=== PATIENT | male | born 1930 | race African-American/Black ===

== ENCOUNTER 2017-05-15 08:47 | Inpatient (IN) | payer OTHER ==
--- NOTE | 2017-05-15 09:28 | PDOC ---
History of Present Illness - General Chief Complaint: Weakness Stated Complaint: FEVER/TREMORS (RECENTLY TRAVELED) Time Seen by Provider: 05/15/17 09:23 History Source: Patient, Family ( and son) Exam Limitations: No Limitations - History of Present Illness Initial Comments: 05/15/17 09:28 Patient is an 87 year old male with history of HTN and travel to [facility] sent from PCP d/t a positive test for malaria. Patient c/o fever and chills 3 days ago with 1x non bloody, non bilious vomiting and progressively worsening weakness and tiredness. Endorses mild cough, loss of appetite, tiredness, weakness and b/l lateral abdomen/flank pain. Denies recent fever, nausea, vomiting. Patient endorses taking malaria prophylaxis/treatment prior to trip. PCP: Dr. Hernandez ([phone]) According to Dr. 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 Patient was prescribed potassium supplements and was instructed to present to the ED. Past History - Past Medical History Allergies/Adverse Reactions: Allergies Allergy/AdvReac Type Severity Reaction Status Date / Time hydromorphone HCl AdvReac Severe Difficulty Verified 05/15/17 08:49 [From Dilaudid] Breathing Home Medications: Ambulatory Orders Hydrochlorothiazide [Hctz -] 25 mg PO DAILY 10/18/15 Anemia: No Asthma: No Cancer: No Cardiac Disorders: No CVA: No COPD: No CHF: No Dementia: No Diabetes: No GI Disorders: No Disorders: No HTN: Yes (MILD HAS USED PROPANOLOL IN PAST NOT IN MONTHS) Hypercholesterolemia: No Liver Disease: No Seizures: No Thyroid Disease: No - Surgical History Abdominal Surgery: No Appendectomy: No Cardiac Surgery: No Cholecystectomy: No Lung Surgery: No Neurologic Surgery: No Orthopedic Surgery: No - Suicide/Smoking/Psychosocial Hx Smoking History: Never smoked Have you smoked in the past 12 months: No Information on smoking cessation initiated: No Hx Alcohol Use: No Drug/Substance Use Hx: No Substance Use Type: None Hx Substance Use Treatment: No Review of Systems - Review of Systems Able to Perform ROS?: Yes Comments:: 05/15/17 10:48 GEN: Endorses fever, chills, general tiredness and malaise and decreased appetite HEENTM: Denies sore throat, Changes in vision, Changes in hearing Respiratory: Endorses Mild Cough; Denies Shortness of Breath Cardiac: Denies Chest Pain, Syncope ABD/GI: Endorses b/l lateral Abdominal/flank Pain, 1x vomiting; Denies Nausea, Diarrhea, Constipation, changes in BM : Denies Dysuria, Burning on urination Musculoskeletal: Denies muscle or joint pain Integumentary: Denies diaphoresis, rashes, bruises Neurological: Endorses weakness; Denies ROCHA, dizziness All Other Systems Reviewed and Negative Is the patient limited Korean proficient: No *Physical Exam - Vital Signs Last Vital Signs Temp Pulse Resp BP Pulse Ox 98.9 F 71 18 120/71 99 05/15/17 08:49 05/15/17 08:49 05/15/17 08:49 05/15/17 08:49 05/15/17 08:49 - Physical Exam Comments: GENERAL: AAOx3, nourished and generally well appearing, NAD HEAD: NCAT EYES: PERRLA, EOMI, mildly icteric sclera b/l, conjunctiva clear, mild b/l purulent discharge ENT: Auricles normal inspection, hearing grossly normal, nares patent, no nasal discharge, no congestion, oropharynx clear without exudates, dry mucosal membranes NECK: supple, normal ROM, no LAD, no JVD, no masses RESP: speaking in full sentences, lungs CTAB, symmetrical chest expansion, no respiratory distress HEART: RRR, normal S1-S2, no MRG, peripheral pulses normal and equal bilaterally ABDOMEN: soft, NTND, nlBSx4, no guarding, no rebound, no masses MUSCULOSKELETAL: no CVA Tenderness EXTREMITIES: normal inspection, moving all extremities, full ROM, strength 5/5, sensation grossly intact NEUROLOGICAL: CN II-XII grossly intact, normal speech, gait unevaluated, no focal sensorimotor deficits SKIN: warm, dry, normal turgor, no rashes or lesions noted. ED Treatment Course - LABORATORY CBC & Chemistry Diagram: 05/16/17 08:00 05/15/17 10:00 Medical Decision Making - Medical Decision Making 05/15/17 10:54 87 year old male with recent travel to [place] sent by PCP with positive test for Malaria. History of fever and vomiting x1 3 days ago, c/o anarexia, tierdness and weakness. Ddx includes but is not limited to Malaria CBC/CMP Blood parasites evaluation to confirm malaria Call PCP Call CDC Consult ID 05/15/17 10:57 CBC WBC 4.1 K/mm3 (4.0-10.0) D 05/15/17 10:00 RBC 4.33 M/mm3 (4.00-5.60) D 05/15/17 10:00 Hgb 11.9 GM/dL (11.7-16.9) D 05/15/17 10:00 Hct 36.7 % (35.4-49) D 05/15/17 10:00 MCV 84.7 fl (80-96) 05/15/17 10:00 MCH 27.4 pg (25.7-33.7) 05/15/17 10:00 MCHC 32.4 g/dl (32.0-35.9) 05/15/17 10:00 RDW 14.9 % (11.9-15.9) 05/15/17 10:00 Plt Count 68 K/MM3 (134-434) L D 05/15/17 10:00 MPV 8.9 fl (7.5-11.1) D 05/15/17 10:00 Total Counted 100 05/15/17 10:00 Neutrophils % No Result Required. 05/15/17 10:00 Neutrophils % (Manual) 31 % (42.8-82.8) L 05/15/17 10:00 Lymphocytes % No Result Required. 05/15/17 10:00 Lymphocytes % (Manual) 49 % (8-40) H 05/15/17 10:00 Monocytes % (Manual) 18 % (3.8-10.2) H* 05/15/17 10:00 Eosinophils % (Manual) 1 % (0-4.5) 05/15/17 10:00 Platelet Estimate Decreased (NORMAL) 05/15/17 10:00 Decreased platelets with increased monocytes and lymphocytes Thrombocytopenia improved from value reported by PCP 05/15/17 11:[address] Hernandez, requested callback 05/15/17 11:[address] Hernandez, Patient tested positive for P. falciparum malaria at [facility] He sent them to ED d/t k=2.9 and Plt=39, elevated LFT and for treatment Notified department of health Consulted Dr. Osman with ID who wants patient admitted for observation due to patient's age and the prevelance of resistant malaria in the area where patient traveled. Additional recommendations: - Provide hydration - Follow labs and sugars - Obtain percentage of parasites in blood - Treat with Malarone 250/100 (atovaquone/proguanil) for 7 days Spoke with Zainaby who agreed with admission. 05/15/17 13:31 Blood parasites returned negative Repeat temperature 100.1 per rectum ordered complete vitals Non concerning for sepsis at this time 05/15/17 14:18 Tylenol for ROCHA after review with attending Responded to multiple inquires by nursing to have patient moved to isolation. Informed them this was not necessary d/t transmission by mosquito vector. Referred them to ID for confirmation. *DC/Admit/Observation/Transfer Diagnosis at time of Disposition: Malaria, Thrombocytopenia - Discharge Dispostion Admit: Yes
[2017-05-15 10:18] LABS: MCH 27.4 pg (25.7-33.7); MCHC 32.4 g/dl (32.0-35.9); MEAN CELL VOLUME 84.7 fl (80-96); MEAN PLT VOLUME 8.9 fl (7.5-11.1); PLATELET COUNT 68 K/MM3 (134-434); RDW 14.9 % (11.9-15.9); WHITE BLOOD COUNT 4.1 K/mm3 (4.0-10.0)
--- NOTE | 2017-05-15 10:31 | PDOC ---
Attending Attestation - Resident Resident Name: Cornelio Neal - ED Attending Attestation I have performed the following: I have examined & evaluated the patient, The case was reviewed & discussed with the resident, I agree w/resident's findings & plan, Exceptions are as noted - HPI HPI: 05/15/17 09:59 87yo M hx sent in by PMD due to testing positive for malaria. Reports fever 3 days ago and chills, he was in [place] 2 weeks ago. Also endorsed 1 episode of NBNB emesis. +cough, decreased appetite. Reports generalized weakness as well. Did not take tempt at home. Denies headache, cp, sob, abd pain, LE edema, dysuria - Physicial Exam PE: 05/15/17 14:41 GENERAL: Awake, alert, and fully oriented, in no acute distress HEAD: No signs of trauma EYES: PERRLA, EOMI, sclera anicteric, conjunctiva clear ENT: Auricles normal inspection, hearing grossly normal, nares patent, oropharynx clear without exudates. Moist mucosa NECK: Normal ROM, supple, no lymphadenopathy, JVD, or masses LUNGS: Breath sounds equal, clear to auscultation bilaterally. No wheezes, and no crackles HEART: Regular rate and rhythm, normal S1 and S2, no murmurs, rubs or gallops ABDOMEN: Soft, nontender, normoactive bowel sounds. No guarding, no rebound. No masses EXTREMITIES: Normal range of motion, no edema. No clubbing or cyanosis. No cords, erythema, or tenderness NEUROLOGICAL: Normal speech, cranial nerves intact, negative pronator drift, 5/ 5 strength in all 4 extremities, normal sensation to light touch in all 4 extremities, normal cerebellar exam, normal gait, normal reflexes and tone SKIN: Warm, Dry, normal turgor, no rashes or lesions noted. - Medical Decision Making 05/15/17 14:42 87-year-old male presents with reported +p.falciparum testing as outpatient a/w fevers, chills, vomiting. Recent travel to [place]. Vitals and exam wnl. Per Dr. Queen, he recommends admission until we know the percentage of parasitemia. plan: -rpt smear -labs -hydration -f/u ID recs -admit
[2017-05-15 10:43] LABS: PLATELET ESTIMATE DECREASED (NORMAL); TOTAL CELLS COUNTED 100
[2017-05-15 10:53] LABS: ALBUMIN 2.7 g/dl (3.4-5.0); ANION GAP 4 (8-16); CALCIUM 8.4 mg/dL (8.5-10.1); CO2 35 mmol/L (21-32); GLUCOSE,RANDOM 93 mg/dL (74-106)
[2017-05-15 10:56] LABS: BILIRUBIN,TOTAL 2.1 mg/dL (0.2-1.0); CREATININE 0.8 mg/dL (0.7-1.3); SGPT/ALT 23 U/L (12-78); TOT PROT 6.5 g/dl (6.4-8.2)
[2017-05-15 10:57] LABS: ALK PHOS 61 U/L (45-117); SGOT/AST 38 U/L (15-37)
[2017-05-15] MEDS ORDERED: SODIUM CHLORIDE 1,000 ML IV SCH (13:45)
--- NOTE | 2017-05-15 14:02 | CON.ID ---
Consult Consult Specialty:: infectious diseases Reason for Consultation:: poisitive for malaria - History of Present Illness Chief Complaint: fever and chills History of Present Illness: 87 year old male sent over by his primary due to positive blood test for malaria. returned home from [place] two weeks ago, three days ago he started having fever , chills, headache, nausea. Blood work, done which found malaria. Patient was in [place] for 6 months, he was pre treated with chloroquine for threes weeks. He was staying in [place] area of [facility]. currently patient does not complain anything says he had high fever,does not know how high - History Source History Provided By: Patient Limitations to Obtaining History: Poor Historian - Alcohol/Substance Use Hx Alcohol Use: No - Smoking History Smoking history: Never smoked Have you smoked in the past 12 months: No Home Medications - Allergies Allergies/Adverse Reactions: Allergies Allergy/AdvReac Type Severity Reaction Status Date / Time hydromorphone HCl AdvReac Severe Difficulty Verified 05/15/17 08:49 [From Dilaudid] Breathing - Home Medications Home Medications: Ambulatory Orders Hydrochlorothiazide [Hctz -] 25 mg PO DAILY 10/18/15 Review of Systems - Review of Systems Constitutional: reports: Fever Eyes: reports: No Symptoms HENT: reports: No Symptoms Neck: reports: No Symptoms Cardiovascular: reports: No Symptoms Respiratory: reports: No Symptoms Gastrointestinal: reports: No Symptoms Genitourinary: reports: No Symptoms Musculoskeletal: reports: No Symptoms Integumentary: reports: No Symptoms Endocrine: reports: No Symptoms Hematology/Lymphatic: reports: No Symptoms Psychiatric: reports: No Symptoms Physical Exam Vital Signs: Vital Signs Temperature 101 F H 05/15/17 13:35 Pulse Rate 63 05/15/17 13:35 Respiratory Rate 20 05/15/17 13:35 Blood Pressure 124/73 05/15/17 13:35 O2 Sat by Pulse Oximetry (%) 99 05/15/17 13:35 Constitutional: Yes: No Distress, Calm Eyes: Yes: Conjunctiva Clear HENT: Yes: Atraumatic, Normocephalic Neck: Yes: Supple, Trachea Midline Cardiovascular: Yes: Regular Rate and Rhythm Respiratory: Yes: Regular, CTA Bilaterally Gastrointestinal: Yes: Normal Bowel Sounds, Soft Musculoskeletal: Yes: WNL Extremities: Yes: WNL Integumentary: Yes: WNL Neurological: Yes: Alert, Oriented Psychiatric: Yes: Alert, Oriented Imaging - Results Chest X-ray: Report Reviewed, Image Reviewed Assessment/Plan 87 year old male who was sent over by primary for malaria treatment. Problem List - Problem (1) Malaria Code(s): B54 - UNSPECIFIED MALARIA (2) Thrombocytopenia Code(s): D69.6 - THROMBOCYTOPENIA, UNSPECIFIED increased bili 4 fever please resend thick and thin smear for malaria percentage to be seen plan lymes babesia erlichia close watch on patient if high fevers or ams icu start patient on malronone 1 tab daily trend blood work and sugars rest as per primary
[2017-05-15] MEDS ORDERED: ACETAMINOPHEN 325 MG TABLET (FP) PO ONE (14:20)
[2017-05-15] MEDS ORDERED: ACETAMINOPHEN 325 MG TABLET (FP) ONE (14:21)
--- NOTE | 2017-05-15 14:26 | HP ---
<Deisy Henderson - Last Filed: 05/15/17 19:05> CHIEF COMPLAINT: fever PCP: HISTORY OF PRESENT ILLNESS: 87 year old male sent over by his primary due to positive blood test for malaria. PAtient just returned home from [place] two weeks ago, three days ago he started having fever, chills, headache, nausea. He then went to his primary who sent him for blood work, which found malaria. Patient was in [place] for 6 months, he was pre treated with chloroquine for threes weeks. He was [place] area of [place]. Recent Travel:[place] PAST MEDICAL HISTORY: htn PAST SURGICAL HISTORY: Social History: Smoking:no Alcohol:no Drugs: no Family History: Allergies hydromorphone HCl [From Dilaudid] Adverse Reaction (Severe, Verified 05/15/17 08 :49) Difficulty Breathing PT'S DAUGHTER REPORTS AFTER A PRIOR SURGERY PT HAD DIFFICULTY BREATHING AFTER RECEIVING DILAUDID AND HAD TO HAVE NARCAN DR. FINE MADE AWARE AT 1051 HOME MEDICATIONS: Home Medications Medication Instructions Recorded Hydrochlorothiazide [Hctz -] 25 mg PO DAILY 10/18/15 REVIEW OF SYSTEMS CONSTITUTIONAL: Positive: fever, chills, weakness Absent: malaise, loss of appetite, weight change HEENT: Absent: rhinorrhea, nasal congestion, throat pain, throat swelling, difficulty swallowing, mouth swelling, ear pain, eye pain, visual changes CARDIOVASCULAR: Absent: chest pain, syncope, palpitations, irregular heart rate, lightheadedness , peripheral edema RESPIRATORY: Absent: cough, shortness of breath, dyspnea with exertion, orthopnea, wheezing, stridor, hemoptysis GASTROINTESTINAL: Absent: abdominal pain, abdominal distension, nausea, vomiting, diarrhea, constipation, melena, hematochezia GENITOURINARY: Absent: dysuria, frequency, urgency, hesitancy, hematuria, flank pain, genital pain MUSCULOSKELETAL: Absent: myalgia, arthralgia, joint swelling, back pain, neck pain SKIN: Absent: rash, itching, pallor HEMATOLOGIC/IMMUNOLOGIC: Absent: easy bleeding, easy bruising, lymphadenopathy, frequent infections ENDOCRINE: Absent: unexplained weight gain, unexplained weight loss, heat intolerance, cold intolerance NEUROLOGIC: Absent: headache, focal weakness or paresthesias, dizziness, unsteady gait, seizure, mental status changes, bladder or bowel incontinence PSYCHIATRIC: Absent: anxiety, depression, suicidal or homicidal ideation, hallucinations. PHYSICAL EXAMINATION Vital Signs - 24 hr 05/15/17 05/15/17 13:27 13:35 Temperature 99.4 F 101 F H Pulse Rate [ 63 Radial] Respiratory 20 Rate Blood Pressure 124/73 [Left Arm] O2 Sat by Pulse 99 Oximetry (%) GENERAL: Awake, alert, and fully oriented, in no acute distress. HEAD: Normal with no signs of trauma. EYES: Pupils equal, round and reactive to light, extraocular movements intact, sclera anicteric, conjunctiva clear. No lid lag. EARS, NOSE, THROAT: Ears normal, nares patent, oropharynx clear without exudates. Moist mucous membranes. NECK: Normal range of motion, supple without lymphadenopathy, JVD, or masses. LUNGS: Breath sounds equal, clear to auscultation bilaterally. No wheezes, and RLL mils crackles. No accessory muscle use. HEART: Regular rate and rhythm, normal S1 and S2 without murmur, rub or gallop. ABDOMEN: Soft, nontender, not distended, normoactive bowel sounds, no guarding, no rebound, no masses. No hepatomegaly or splenomegaly. MUSCULOSKELETAL: Normal range of motion at all joints. No bony deformities or tenderness. No CVA tenderness. UPPER EXTREMITIES: 2+ pulses, warm, well-perfused. No cyanosis. No clubbing. No peripheral edema. LOWER EXTREMITIES: 2+ pulses, warm, well-perfused. No calf tenderness. No peripheral edema. NEUROLOGICAL: Cranial nerves II-XII intact. Normal speech. Normal gait. PSYCHIATRIC: Cooperative. Good eye contact. Appropriate mood and affect. SKIN: Warm, dry, normal turgor, no rashes or lesions noted, normal capillary refill. ASSESSMENT/PLAN: This is a 87 year old male who was sent over by [facility] for malaria treatment. #Fever, chills, recent travel secondary to malaria; -rule out other etiology -Ehrlichia, babesia, lyme -malaria smear pcr -isolation precautions -cbc, cmp -trend bili -monitor glucose -if fever or altered mental status transfer to ICU as per ID case discussed with attending and ID full h and p to follow Problem List - Problem (1) Malaria Code(s): B54 - UNSPECIFIED MALARIA (2) Thrombocytopenia Code(s): D69.6 - THROMBOCYTOPENIA, UNSPECIFIED Visit type - Emergency Visit Emergency Visit: Yes ED Registration Date: 05/15/17 Care time: The patient presented to the Emergency Department on the above date and was hospitalized for further evaluation of their emergent condition. - New Patient This patient is new to me today: Yes Date on this admission: 05/15/17 - Critical Care Critical Care patient: No <Prieto Morgan - Last Filed: 05/15/17 21:05> WILL START THE PATIENT ON Malarone 750mg po daily, discussed with will stop Hctz for now, will start on IVF 1/2ns At 75cc/hr , and Norvasc for HTN
--- NOTE | 2017-05-15 20:07 | PN ---
Teaching Attending Note Name of Resident: Deisy Henderson ATTENDING PHYSICIAN STATEMENT I saw and evaluated the patient. I reviewed the resident's note and discussed the case with the resident. I agree with the resident's findings and plan as documented. SUBJECTIVE: Patient is a 87yo male presented for having Fever at home with recent Dx of Malaria by his PMD . received one dose antimalarial medication but patient does not know the name of it. Came back from [place] 14 days ago and stayed there for 6 months as per patient. OBJECTIVE: Vital Signs Temperature 98.7 F 05/15/17 18:55 Pulse Rate 106 H 05/15/17 18:55 Respiratory Rate 18 05/15/17 18:55 Blood Pressure 162/64 05/15/17 18:55 O2 Sat by Pulse Oximetry (%) 99 05/15/17 16:02 CBCD WBC 4.1 K/mm3 (4.0-10.0) D 05/15/17 10:00 RBC 4.33 M/mm3 (4.00-5.60) D 05/15/17 10:00 Hgb 11.9 GM/dL (11.7-16.9) D 05/15/17 10:00 Hct 36.7 % (35.4-49) D 05/15/17 10:00 MCV 84.7 fl (80-96) 05/15/17 10:00 MCHC 32.4 g/dl (32.0-35.9) 05/15/17 10:00 RDW 14.9 % (11.9-15.9) 05/15/17 10:00 Plt Count 68 K/MM3 (134-434) L D 05/15/17 10:00 MPV 8.9 fl (7.5-11.1) D 05/15/17 10:00 CMP Sodium 140 mmol/L (136-145) 05/15/17 10:00 Potassium 3.9 mmol/L (3.5-5.1) 05/15/17 10:00 Chloride 101 mmol/L (98-107) 05/15/17 10:00 Carbon Dioxide 35 mmol/L (21-32) H D 05/15/17 10:00 Anion Gap 4 (8-16) L 05/15/17 10:00 BUN 17 mg/dL (7-18) D 05/15/17 10:00 Creatinine 0.8 mg/dL (0.7-1.3) 05/15/17 10:00 Creat Clearance w eGFR > 60 (>60) 05/15/17 10:00 Random Glucose 93 mg/dL (74-106) 05/15/17 10:00 Calcium 8.4 mg/dL (8.5-10.1) L 05/15/17 10:00 Total Bilirubin 2.1 mg/dL (0.2-1.0) H D 05/15/17 10:00 AST 38 U/L (15-37) H 05/15/17 10:00 ALT 23 U/L (12-78) D 05/15/17 10:00 Alkaline Phosphatase 61 U/L (45-117) D 05/15/17 10:00 Total Protein 6.5 g/dl (6.4-8.2) D 05/15/17 10:00 Albumin 2.7 g/dl (3.4-5.0) L 05/15/17 10:00 Current Medications Generic Name Dose Route Start Last Admin Trade Name Freq PRN Reason Stop Dose Admin Hydrochlorothiazide 25 mg 05/16/17 10:00 Hctz - PO DAILY [facility] Sodium Chloride 1,000 mls @ 150 mls/hr 05/15/17 13:45 05/15/17 14:00 Normal Saline - IV 150 mls/hr ASDIR TANA Administration Non-Formulary Medication 1 each 05/16/17 10:00 Patient's Own Med PO 05/23/17 09:59 DAILY [facility] Home Medications Medication Instructions Recorded Hydrochlorothiazide [Hctz -] 25 mg PO DAILY 10/18/15 PE: as per resident's note No icturus, no jaundice. ASSESSMENT AND PLAN: This is a 87 year old male who recently came back visiting [facility] and was given prophylactic meds for Malaria by his PMD , as per patient he has been back for 14 days now, has been having Fever. W/u was done by ,as per patient the w/u was positive for Malaria. # Diagnosed Malaria as an outpatient ,coming in with Fever, chills, will continue further w/u Ehrlichia, babesia, lyme, will repeat the malaria smear pcr -isolation precautions, cbc, cmp, elevated bili will repeat in am, if patient spikes further , fever or has change of mental status Tx the patient to ICU as per ID will start the patient on Malarone 750mg as per #Hx of HTN will hold Hctz for now, will start the patient on Norvasc 5mg if needed increase the dose. DVT px: SCD
[2017-05-15] MEDS ORDERED: PROGUANIL PO SCH (20:55)
[2017-05-15] MEDS ORDERED: ATOVAQUONE PO SCH (20:55)
[2017-05-15] MEDS: SODIUM CHLORIDE 0.45% 1,000 ML IV SCH (21:33)
[2017-05-15] MEDS: amLODIPine BESYLATE 5 MG TABLET (FP) PO SCH (21:35)
[2017-05-15 22:47] VITALS: BMI 28.5
[2017-05-16 08:43] LABS: MCH 27.4 pg (25.7-33.7); MCHC 32.3 g/dl (32.0-35.9); MEAN CELL VOLUME 84.9 fl (80-96); MEAN PLT VOLUME 7.7 fl (7.5-11.1); PLATELET COUNT 81 K/MM3 (134-434); RDW 15.1 % (11.9-15.9); WHITE BLOOD COUNT 4.1 K/mm3 (4.0-10.0)
[2017-05-16 09:14] LABS: ALBUMIN 2.4 g/dl (3.4-5.0); ANION GAP 7 (8-16); BILIRUBIN,TOTAL 1.4 mg/dL (0.2-1.0); CALCIUM 7.8 mg/dL (8.5-10.1); CO2 33 mmol/L (21-32); CREATININE 0.5 mg/dL (0.7-1.3); GLUCOSE,RANDOM 81 mg/dL (74-106); MAGNESIUM 2.1 mg/dL (1.8-2.4); PHOSPHOROUS 2.5 mg/dL (2.5-4.9); SGOT/AST 21 U/L (15-37); SGPT/ALT 20 U/L (12-78); TOT PROT 5.6 g/dl (6.4-8.2)
[2017-05-16 09:15] LABS: ALK PHOS 52 U/L (45-117)
[2017-05-16] MEDS ORDERED: HYDROCHLOROTHIAZIDE 25 MG TABLET (FP) PO SCH ×2 (10:00)
[2017-05-16] MEDS: amLODIPine BESYLATE 5 MG TABLET (FP) PO SCH (10:00)
[2017-05-16] MEDS: SODIUM CHLORIDE 0.45% 1,000 ML IV SCH (10:00)
[2017-05-16] MEDS ORDERED: PT OWN MED DRAWER 7, Y5N ONE (10:29)
[2017-05-16 11:40] LABS: BASOPHIL (MANUAL) 1 % (0-2.0); NUCLEATED RED BLOOD CELL 2 % (0-0); PLATELET COMMENT2 NO CLOTTING DETECTED; PLATELET COMMENT3 FEW LARGE PLTS; PLATELET ESTIMATE DECREASED (NORMAL); TOTAL CELLS COUNTED 100
[2017-05-16 11:41] LABS: REACTIVE LYMPHOCYTES 2 % (0-80)
[2017-05-16] MEDS ORDERED: POTASSIUM CHLORIDE ORAL LIQUID 20 MEQ/15 ML PO ONE ×2 (12:00→16:00)
--- NOTE | 2017-05-16 12:53 | PN ---
Progress Note, Physician Chief Complaint: I.D. progress note History of Present Illness: Pt seen and examined. Chart and labs reviewed. Pt states he feels much better. No fever, chills, nausea/vomiting or headache. - Current Medication List Current Medications: Active Medications Amlodipine Besylate (Norvasc -) 5 mg PO DAILY [facility] Last Admin: 05/16/17 10:00 Dose: 5 mg Sodium Chloride (1/2 Normal Saline) 1,000 mls @ 75 mls/hr IV ASDIR TANA Stop: 05/17/17 10:34 Last Admin: 05/16/17 10:00 Dose: 75 mls/hr Nf: Malarone= Atovaquone/Proguanil 250mg/100 Mg. 3 each PO DAILY [facility] Stop: 05/22/17 18:59 Last Admin: 05/16/17 10:00 Dose: 3 each Potassium Chloride (Potassium Chloride Oral Liquid) 40 meq PO ONCE ONE Stop: 05/16/17 16:01 - Objective Vital Signs: Vital Signs Temperature 98.2 F 05/16/17 09:22 Pulse Rate 65 05/16/17 09:22 Respiratory Rate 18 05/16/17 09:22 Blood Pressure 145/75 05/16/17 09:22 O2 Sat by Pulse Oximetry (%) 98 05/16/17 10:03 Constitutional: Yes: No Distress, Calm HENT: Yes: WNL Neck: Yes: Supple Cardiovascular: Yes: Regular Rate and Rhythm Respiratory: Yes: CTA Bilaterally. No: WNL, Regular, Accessory Muscle Use, Bradypnea, Shawn-Hansen, Cough, Diminished, Dullness, Hyperresonant, Intubated , Kussmaul, Mechanically Ventilated, On BiPap, On Nasal O2, On Venti-Mask, Orthopnea, Poor Air Entry, Rales, Rhonchi, SOB, SOB on Exertion, Stridor, Tachypnea, Wheezes, Other Gastrointestinal: Yes: Normal Bowel Sounds, Soft. No: WNL, Abdomen, Obese, Ascites, Distention, Hematemesis, Hemorrhoids, Hepatomegaly, Hernia, Hyperactive Bowel Sounds, Hypoactive Bowel Sounds, Melena, Palpable Mass, Pulsatile Mass, Rectal Bleeding, Splenomegaly, Tenderness, Tenderness, Epigastrium, Tenderness, Rebound, Vomiting, Other Genitourinary: Yes: WNL. No: Anuria, Bladder Distention, CVA Tenderness - Left , CVA Tenderness - Right, Bautista Present, Hematuria, Incontinence, Menses Present , Oliguria, Polyuria, , Scrotal Edema, Urethral Discharge, Vaginal Bleeding, Vaginal Discharge, Other Breast(s): Yes: WNL. No: Left, Right, Breast Implants, Dimpling, Discharge from Nipple, Gynecomastia, Mass, Nipple Inversion, Skin Changes, Other Musculoskeletal: Yes: WNL. No: Back Pain, Joint Stiffness, Joint Swelling, Muscle Pain, Muscle Weakness, Other Extremities: No: WNL, Amputation, Calf Tenderness, Cold, Cool, Cyanosis, Deformity, Delayed Capillary Refill, Erythema, External Rotation, Internal Rotation, Pallor, Shortened, Other Integumentary: No: WNL, Body Piercing, Bruising, Erythema, Incision, Jaundice, Laceration, Petechiae, Pressure Ulcer, Rash, Skin Tear, Tattoos, Tenting, Onychomycosis, Venous Stasis Changes, Other Neurological: Yes: Alert, Oriented Psychiatric: Yes: Alert, Oriented Labs: CBC, BMP 05/16/17 08:00 05/16/17 08:00 Laboratory Tests 05/15/17 05/15/17 05/16/17 10:00 10:00 08:00 WBC 4.1 D 4.1 RBC 4.33 D 3.73 L Hgb 11.9 D 10.2 L D Hct 36.7 D 31.6 L MCV 84.7 84.9 MCH 27.4 27.4 MCHC 32.4 32.3 RDW 14.9 15.1 Plt Count 68 L D 81 L MPV 8.9 D 7.7 D Total Counted 100 100 Neutrophils % No Result Required. [employer] Director Neutrophils % (Manual) 31 L 42 L D Band Neuts % (Manual) 2 Lymphocytes % No Result Required. [employer] Director Lymphocytes % (Manual) 49 H 39 D Monocytes % [employer] Director Monocytes % (Manual) 18 H* 13 H Eosinophils % [employer] Director Eosinophils % (Manual) 1 1 Basophils % [employer] Director Basophils % (Manual) 1 Nucleated RBC % 2 H Platelet Estimate Decreased Decreased Platelet Comment No clotting detected Sodium 140 Potassium 3.9 Chloride 101 Carbon Dioxide 35 H D Anion Gap 4 L BUN 17 D Creatinine 0.8 Creat Clearance w eGFR > 60 Random Glucose 93 Calcium 8.4 L Phosphorus Magnesium Total Bilirubin 2.1 H D AST 38 H ALT 23 D Alkaline Phosphatase 61 D Total Protein 6.5 D Albumin 2.7 L 05/16/17 08:00 WBC RBC Hgb Hct MCV MCH MCHC RDW Plt Count MPV Total Counted Neutrophils % Neutrophils % (Manual) Band Neuts % (Manual) Lymphocytes % Lymphocytes % (Manual) Monocytes % Monocytes % (Manual) Eosinophils % Eosinophils % (Manual) Basophils % Basophils % (Manual) Nucleated RBC % Platelet Estimate Platelet Comment Sodium 142 Potassium 2.9 L* D Chloride 102 Carbon Dioxide 33 H Anion Gap 7 L BUN 11 D Creatinine 0.5 L D Creat Clearance w eGFR > 60 Random Glucose 81 Calcium 7.8 L Phosphorus 2.5 D Magnesium 2.1 Total Bilirubin 1.4 H D AST 21 D ALT 20 Alkaline Phosphatase 52 Total Protein 5.6 L Albumin 2.4 L Microbiology 05/15/17 10:00 Blood Parasites Smear (SAGE) - Final Blood - Peripheral Venous Problem List - Problems (1) Malaria Code(s): B54 - UNSPECIFIED MALARIA (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
[2017-05-16] MEDS ORDERED: MALARONE PO ONE (14:15)
--- NOTE | 2017-05-16 14:32 | PN ---
Progress Note, Physician - Current Medication List Current Medications: Active Medications Amlodipine Besylate (Norvasc -) 5 mg PO DAILY [facility] Last Admin: 05/16/17 10:00 Dose: 5 mg Sodium Chloride (1/2 Normal Saline) 1,000 mls @ 75 mls/hr IV ASDIR TANA Stop: 05/17/17 10:34 Last Admin: 05/16/17 10:00 Dose: 75 mls/hr Nf: Malarone= Atovaquone/Proguanil 250mg/100 Mg. 4 each PO DAILY [facility] Stop: 05/22/17 18:59 Potassium Chloride (Potassium Chloride Oral Liquid) 40 meq PO ONCE ONE Stop: 05/16/17 16:01 - Objective Vital Signs: Vital Signs Temperature 98.2 F 05/16/17 09:22 Pulse Rate 65 05/16/17 09:22 Respiratory Rate 18 05/16/17 09:22 Blood Pressure 145/75 05/16/17 09:22 O2 Sat by Pulse Oximetry (%) 98 05/16/17 10:03 Constitutional: Yes: Well Nourished, No Distress, Calm Eyes: Yes: WNL, Conjunctiva Clear, EOM Intact HENT: Yes: WNL, Atraumatic, Normocephalic Neck: Yes: WNL Cardiovascular: Yes: WNL, Regular Rate and Rhythm Respiratory: Yes: WNL, Regular, CTA Bilaterally Gastrointestinal: Yes: WNL, Normal Bowel Sounds, Soft ...Rectal Exam: Yes: Deferred Labs: CBC, BMP 05/16/17 08:00 05/16/17 08:00 Problem List - Problems (1) Malaria Assessment/Plan: patient in [facility] no complaints stated that he is doing well Code(s): B54 - UNSPECIFIED MALARIA (2) Thrombocytopenia Assessment/Plan: patient is stable no signs of bleeding was noted will monitor the patient hematology is on board Code(s): D69.6 - THROMBOCYTOPENIA, UNSPECIFIED (3) Hypokalemia Assessment/Plan: K 2.9 today will supplement 120meq of K for the day will repeat the lab tomorrow if the patient labs drop will consider further evaluation of the potassium loss Code(s): E87.6 - HYPOKALEMIA
[2017-05-17] MEDS: SODIUM CHLORIDE 0.45% 1,000 ML IV SCH (01:23)
[2017-05-17] MEDS ORDERED: POTASSIUM CHLORIDE TABS 20 MEQ TABLET.ER (FP) PO ONE (06:00)
[2017-05-17 09:16] LABS: MCH 27.3 pg (25.7-33.7); MCHC 32.1 g/dl (32.0-35.9); MEAN CELL VOLUME 85.1 fl (80-96); MEAN PLT VOLUME 7.6 fl (7.5-11.1); PLATELET COUNT 114 K/MM3 (134-434); RDW 15.2 % (11.9-15.9); WHITE BLOOD COUNT 4.1 K/mm3 (4.0-10.0)
[2017-05-17 09:56] LABS: ALBUMIN 2.5 g/dl (3.4-5.0); ALK PHOS 58 U/L (45-117); ANION GAP 4 (8-16); BILIRUBIN,TOTAL 1.1 mg/dL (0.2-1.0); CALCIUM 8.1 mg/dL (8.5-10.1); CO2 32 mmol/L (21-32); CREATININE 0.5 mg/dL (0.7-1.3); GLUCOSE,RANDOM 78 mg/dL (74-106); SGOT/AST 32 U/L (15-37); SGPT/ALT 24 U/L (12-78)
[2017-05-17] MEDS: amLODIPine BESYLATE 5 MG TABLET (FP) PO SCH (10:25)
[2017-05-17] MEDS: PROGUANIL PO SCH (12:37)
[2017-05-17] MEDS: ATOVAQUONE PO SCH (12:37)
--- NOTE | 2017-05-17 12:39 | PN ---
Progress Note, Physician Chief Complaint: ID progress note History of Present Illness: Pt states he feels well. Denies headache, abd pain/n/v. Remains afebrile, without acute distress. Sitting up eating. Wishes to go home. - Current Medication List Current Medications: Active Medications Amlodipine Besylate (Norvasc -) 5 mg PO DAILY [facility] Last Admin: 05/17/17 10:25 Dose: 5 mg Nf: Malarone= Atovaquone/Proguanil 250mg/100 Mg. 4 each PO DAILY [facility] Stop: 05/22/17 18:59 - Objective Vital Signs: Vital Signs Temperature 98.1 F 05/17/17 09:35 Pulse Rate 75 05/17/17 09:35 Respiratory Rate 18 05/17/17 09:35 Blood Pressure 160/77 05/17/17 09:35 O2 Sat by Pulse Oximetry (%) 98 05/17/17 10:00 Constitutional: Yes: No Distress, Calm HENT: Yes: WNL Neck: Yes: Supple Cardiovascular: Yes: Regular Rate and Rhythm Respiratory: Yes: CTA Bilaterally Gastrointestinal: Yes: Normal Bowel Sounds, Soft Genitourinary: Yes: WNL Extremities: Yes: WNL Integumentary: Yes: WNL Psychiatric: Yes: Alert, Oriented Labs: CBC, BMP 05/17/17 08:20 05/17/17 08:20 Microbiology 05/15/17 10:00 Blood - Peripheral Venous Blood Parasites Smear (SAGE) - Final Problem List - Problems (1) Malaria Code(s): B54 - UNSPECIFIED MALARIA (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
--- NOTE | 2017-05-17 14:09 | PN ---
Progress Note, Physician - Current Medication List Current Medications: Active Medications Amlodipine Besylate (Norvasc -) 5 mg PO DAILY [facility] Last Admin: 05/17/17 10:25 Dose: 5 mg Nf: Malarone= Atovaquone/Proguanil 250mg/100 Mg. 4 each PO DAILY [facility] Stop: 05/22/17 18:59 Last Admin: 05/17/17 12:37 Dose: 4 each - Objective Vital Signs: Vital Signs Temperature 98.1 F 05/17/17 09:35 Pulse Rate 75 05/17/17 09:35 Respiratory Rate 18 05/17/17 09:35 Blood Pressure 160/77 05/17/17 09:35 O2 Sat by Pulse Oximetry (%) 98 05/17/17 10:00 Constitutional: Yes: Well Nourished, No Distress, Calm Eyes: Yes: WNL, Conjunctiva Clear HENT: Yes: WNL, Atraumatic Neck: Yes: WNL, Supple Cardiovascular: Yes: WNL, Regular Rate and Rhythm Respiratory: Yes: WNL, Regular, CTA Bilaterally Gastrointestinal: Yes: WNL, Normal Bowel Sounds, Soft Labs: CBC, BMP 05/17/17 08:20 05/17/17 08:20 Problem List - Problems (1) Malaria Assessment/Plan: patient to complete last dose of treatment tomorrow and to be d/c home Code(s): B54 - UNSPECIFIED MALARIA (2) Thrombocytopenia Assessment/Plan: resolving plt 118 today from 68 avoid medication that can precipitate worsening plt count Code(s): D69.6 - THROMBOCYTOPENIA, UNSPECIFIED (3) Hypokalemia Assessment/Plan: resolved with medication Code(s): E87.6 - HYPOKALEMIA
[2017-05-18] MEDS: PROGUANIL PO SCH (10:57)
[2017-05-18] MEDS: ATOVAQUONE PO SCH (10:57)
[2017-05-18] MEDS: amLODIPine BESYLATE 5 MG TABLET (FP) PO SCH (10:57)
[2017-05-18 11:03] VITALS: PULSE 69; TEMP 98.2
[2017-05-18 11:06] VITALS: BP 137/68
--- NOTE | 2017-05-18 13:20 | PN ---
Progress Note, Physician History of Present Illness: doing well no new issues - Current Medication List Current Medications: Active Medications Amlodipine Besylate (Norvasc -) 5 mg PO DAILY [facility] Last Admin: 05/18/17 10:57 Dose: 5 mg Nf: Malarone= Atovaquone/Proguanil 250mg/100 Mg. 4 each PO DAILY [facility] Stop: 05/22/17 18:59 Last Admin: 05/18/17 10:57 Dose: 4 each - Objective Vital Signs: Vital Signs Temperature 98.2 F 05/18/17 10:00 Pulse Rate 69 05/18/17 10:00 Respiratory Rate 20 05/18/17 10:00 Blood Pressure 137/68 05/18/17 11:05 O2 Sat by Pulse Oximetry (%) 98 05/18/17 09:00 Constitutional: Yes: No Distress, Calm Cardiovascular: Yes: Regular Rate and Rhythm Respiratory: Yes: Regular, CTA Bilaterally Gastrointestinal: Yes: Normal Bowel Sounds, Soft Musculoskeletal: Yes: WNL Extremities: Yes: WNL Neurological: Yes: Alert, Oriented Psychiatric: Yes: Alert, Oriented Labs: CBC, BMP 05/17/17 08:20 05/17/17 08:20 Assessment/Plan 87 year old male who was sent over by [facility] for malaria treatment. Problem List - Problem (1) Malaria Code(s): B54 - UNSPECIFIED MALARIA (2) Thrombocytopenia Code(s): D69.6 - THROMBOCYTOPENIA, UNSPECIFIED increased bili 4 fever please resend thick and thin smear for malaria percentage to be seen plan continue current mgmt all serologies pending \please make eliseo if any serologies comes positive let the patient know
--- NOTE | 2017-05-18 16:44 | DS ---
Physical Exam: SUBJECTIVE: Patient seen and examined. No acute events overnight. Patient offers no new complaints. Says he feels good and wants to go home. OBJECTIVE: Vital Signs Period Temp Pulse Resp BP Sys/Farmer Pulse Ox Last 24 Hr 98.0 F-98.4 F 69-75 18-20 107-150/52-84 98-98 PHYSICAL EXAM GENERAL: The patient is awake, alert, and fully oriented, in no acute distress. HEAD: Normal with no signs of trauma. EYES: PERRL, extraocular movements intact, sclera anicteric, conjunctiva clear. ENT: Ears normal, nares patent, oropharynx clear without exudates, moist mucous membranes. NECK: Trachea midline, full range of motion, supple. LUNGS: Breath sounds equal, clear to auscultation bilaterally, no wheezes, no crackles, no accessory muscle use. HEART: Regular rate and rhythm, S1, S2 without murmur, rub or gallop. ABDOMEN: Soft, nontender, nondistended, normoactive bowel sounds, no guarding, no rebound, no hepatosplenomegaly, no masses. EXTREMITIES: 2+ pulses, warm, well-perfused, no edema. NEUROLOGICAL: Cranial nerves II through XII grossly intact. Normal speech, gait not observed. PSYCH: Normal mood, normal affect. SKIN: Warm, dry, normal turgor, no rashes or lesions noted. LABS HOSPITAL COURSE: Date of Admission:05/15/17 87 year old male sent over by his primary due to positive blood test for malaria. Patient just returned home from [facility] two weeks ago, three days ago he started having fever, chills, headache, nausea. He then went to his primary who sent him for blood work, which found malaria. Patient was in [place] for 6 months, he was pre treated with chloroquine for threes weeks. Patient was admitted and was followed and managed by ID. He was given Malarone= Atovaquone/ Proguanil 250mg/100 Mg. 4 each PO DAILY for 4 days. Patient was discharged once he completed course. He is to follow up serology results by his PCP in 1 week. Date of Discharge: 05/18/17 Minutes to complete discharge: 35 <Akira Kan - Last Filed: 05/18/17 16:36> Physical Exam: SUBJECTIVE: Patient seen and examined OBJECTIVE: Vital Signs Period Temp Pulse Resp BP Sys/Farmer Pulse Ox Last 24 Hr 98.0 F-98.4 F 69-75 18-20 107-150/52-84 98-98 PHYSICAL EXAM ge of motion, supple. LUNGS: Breath sounds equal, clear to auscultation bilaterally, no wheezes, no crackles, no accessory muscle use. HEART: Regular rate and rhythm, S1, S2 without murmur, rub or gallop. ABDOMEN: Soft, nontender, nondistended, normoactive bowel sounds, no guarding, no rebound, no hepatosplenomegaly, no masses. EXTREMITIES: 2+ pulses, warm, well-perfused, no edema. NEUROLOGICAL: Cranial nerves II through XII grossly intact. Normal speech, gait not observed. PSYCH: Normal mood, normal affect. SKIN: Warm, dry, normal turgor, no rashes or lesions noted. LABS HOSPITAL COURSE: 87 year old male sent over by his primary due to positive blood test for malaria. Patient just returned home from [facility] two weeks ago, three days ago he started having fever, chills, headache, nausea. He then went to his primary who sent him for blood work, which found malaria. Patient was in [place] for 6 months, he was pre treated with chloroquine for threes weeks. Patient was admitted and was followed and managed by ID. He was given Malarone= Atovaquone/ Proguanil 250mg/100 Mg. 4 each PO DAILY for 4 days. Patient was discharged once he completed course. He is to follow up serology results by his PCP in 1 week. Date of Admission:05/15/17 Date of Discharge: 05/18/17 Minutes to complete discharge: 35 <Macario Still - Last Filed: 05/18/17 17:12> Discharge Summary Reason For Visit: MALARIA - Home Medications Comprehensive Discharge Medication List: Ambulatory Orders Amlodipine Besylate [Norvasc -] 5 mg PO DAILY #30 tablet 05/18/17 <Akira Kan - Last Filed: 05/18/17 16:36> - Home Medications Comprehensive Discharge Medication List: Ambulatory Orders Amlodipine Besylate [Norvasc -] 5 mg PO DAILY #30 tablet 05/18/17 <Macario Still - Last Filed: 05/18/17 17:12> Condition: Improved - Instructions Diet, Activity, Other Instructions: Please follow up with your primary care physician in 1 week. Take your medications as directed. If you feel worsening of your symptoms, call your doctor. If its an emergency, go to your nearest emergency department. Referrals: Davon Jensen MD [Primary Care Provider] - 1 Week Disposition: HOME This patient is new to me today: Yes Date on this admission: 05/18/17 Emergency Visit: Yes ED Registration Date: 05/15/17 Care time: The patient presented to the Emergency Department on the above date and was hospitalized for further evaluation of their emergent condition. Critical Care patient: No - Discharge Referral Referred to [facility] No <Akira Kan - Last Filed: 05/18/17 16:36>
--- NOTE | 2017-05-19 07:07 | EKG ---
Test Reason : Blood Pressure : / mmHG Vent. Rate : 097 BPM Atrial Rate : 097 BPM P-R Int : 180 ms QRS Dur : 098 ms QT Int : 406 ms P-R-T Axes : 099 -46 057 degrees QTc Int : 515 ms SINUS RHYTHM WITH PREMATURE SUPRAVENTRICULAR COMPLEXES LEFT AXIS DEVIATION SEPTAL INFARCT , AGE UNDETERMINED PROLONGED QT ABNORMAL ECG WHEN COMPARED WITH ECG OF 15-MAY-2017 16:08, BASELINE ARTIFACT IS SEEN Confirmed by RENETTA BLANCA, JASMIN ([id number]) on 05/19/2017 7:06:59 AM Referred By: CELIA KENDRICK DR Confirmed By:JASMIN JACKSON MD
--- NOTE | 2017-05-19 07:19 | EKG ---
Test Reason : Blood Pressure : / mmHG Vent. Rate : 071 BPM Atrial Rate : 071 BPM P-R Int : 230 ms QRS Dur : 096 ms QT Int : 428 ms P-R-T Axes : 085 -47 065 degrees QTc Int : 465 ms SINUS RHYTHM WITH 1ST DEGREE A-V BLOCK WITH FREQUENT PREMATURE VENTRICULAR COMPLEXES AND PREMATURE ATRIAL COMPLEXES LEFT ANTERIOR FASCICULAR BLOCK ABNORMAL ECG WHEN COMPARED WITH ECG OF 16-AUG-2015 09:16, PREMATURE ATRIAL COMPLEXES ARE NOW PRESENT VENT. RATE HAS DECREASED Confirmed by JASMIN JACKSON MD ([id number]) on 05/19/2017 7:19:05 AM Referred By: Confirmed By:JASMIN JACKSON MD
[2017-05-20 00:07] LABS: BABESIA MICROTI ANTIBODY IGG <1:10 (Neg:<1:10)
--- NOTE | 2017-05-20 15:53 | PN ---
Physical Exam: Labs came back positive for lyme disease. Doxycycline 100mg BID for 21 days was prescribed for the patient. Patient and daughter were both notified and were educated on Lyme. They agreed to worm picker the antibiotics from the pharmacy and start treatment today. Visit type - Emergency Visit Emergency Visit: Yes ED Registration Date: 05/15/17 Care time: The patient presented to the Emergency Department on the above date and was hospitalized for further evaluation of their emergent condition. - New Patient This patient is new to me today: No - Critical Care Critical Care patient: No
== END 2017-05-18 13:53 | disposition home or self-care (01) | DRG 724 ==
LOC: JER 08:47 → JERBED 12:57 → J5S 18:08
PROVIDERS: ADMIT Internal Medicine; ATTEND Internal Medicine
DX: B54 Unspecified malaria (principal); D69.6 Thrombocytopenia, unspecified; I10 Essential (primary) hypertension; E87.6 Hypokalemia; N40.1 Benign prostatic hyperplasia with lower urinary tract symptoms; R33.8 Other retention of urine
CPT/HCPCS: 36415; 71010-TC; 80053; 83735; 84100; 85025; 85027; 86666; 86753; 87207; 87798; 93005; 93010; 99285-25

== ENCOUNTER 2020-12-21 16:21 | Inpatient (IN) | payer OTHER ==
[2020-12-21 18:32] LABS: BASO % 0.4 % (0-2.0); EOS % 0.2 % (0-4.5); HEMATOCRIT 40.4 % (35.4-49); LYMPH % 31.6 % (8-40); MCH 27.9 pg (25.7-33.7); MCHC 32.2 g/dl (32.0-35.9); MEAN CELL VOLUME 86.8 fl (80-96); MEAN PLT VOLUME 9.1 fl (7.5-11.1); MONO % 14.2 % (3.8-10.2); NEUT % 53.6 % (42.8-82.8); PLATELET COUNT 125 K/MM3 (134-434); RBC 4.66 M/mm3 (4.00-5.60); RDW 15.2 % (11.9-15.9); WHITE BLOOD COUNT 3.6 K/mm3 (4.0-10.0)
[2020-12-21 18:35] LABS: INR 0.95 (0.83-1.09); PROTHROMBIN TIME (PATIENT) 11.5 SEC (9.7-13.0)
[2020-12-21 18:38] LABS: ACTIVATED PTT 36.5 SECONDS (25.2-36.5)
[2020-12-21 18:46] LABS: CHLORIDE 99 mmol/L (98-107); SODIUM 136 mmol/L (136-145)
[2020-12-21 18:48] LABS: CALCIUM 9.2 mg/dL (8.5-10.1)
[2020-12-21 18:49] LABS: ALBUMIN 3.8 g/dl (3.4-5.0); ANION GAP 5 MMOL/L (8-16); BLOOD UREA NITROGEN 22.2 mg/dL (7-18); CO2 32 mmol/L (21-32); GLUCOSE,RANDOM 89 mg/dL (74-106)
[2020-12-21 18:52] LABS: SGOT/AST 53 U/L (15-37); SGPT/ALT 56 U/L (13-61)
[2020-12-21 18:53] LABS: BILIRUBIN,TOTAL 0.6 mg/dL (0.2-1); TOT PROT 7.5 g/dl (6.4-8.2)
[2020-12-21 18:55] LABS: ALK PHOS 75 U/L (45-117)
[2020-12-21 20:03] LABS: CHOLESTEROL 147 mg/dL (50-200); HDL CHOLESTEROL 105 mg/dL (40-60); LDL CHOLESTEROL (ONLY DFH) 27 mg/dl (5-100); TRIGLYCERIDES 76 mg/dL (0-150)
[2020-12-21 21:33] LABS: EPI CELLS 8 /uL (0-25.1); HYALINE CASTS 1 /uL (0-3.1); PH,URINE 8.5 (5.0-8.0); URINE APPEARANCE CLEAR; URINE BACTERIA 26 /uL (0-1359); URINE BILIRUBIN NEGATIVE (NEGATIVE); URINE COLOR YELLOW; URINE GLUCOSE (UA) NEGATIVE (NEGATIVE); URINE KETONE NEGATIVE (NEGATIVE); URINE LEUK ESTERASE TRACE (NEGATIVE); URINE NITRITE NEGATIVE (NEGATIVE); URINE PROTEIN NEGATIVE (NEGATIVE); URINE RBC 10 /uL (0-23.9); URINE UROBILINOGEN 0.2 mg/dL (0.2-1.0); URINE WBC 213 /uL (0-25.8)
[2020-12-21] MEDS ORDERED: CEFTRIAXONE 1 GM in DEXTROSE 5%-WATER - 50 ML IVPB ONE (22:08)
[2020-12-21] MEDS ORDERED: CEFTRIAXONE 1 GM/50 ML BAG ONE (22:47)
[2020-12-21] MEDS: SODIUM CHLORIDE 1,000 ML IV SCH (22:54)
[2020-12-22] MEDS: APIXABAN 2.5 MG TABLET PO SCH ×3 (00:41→21:32)
[2020-12-22] MEDS: ATORVASTATIN CA 40 MG TABLET (FP) PO SCH ×2 (00:41→21:32)
[2020-12-22 02:54] VITALS: BMI 30.7
[2020-12-22 08:01] LABS: BASO % 0.2 % (0-2.0); EOS % 0.4 % (0-4.5); HEMATOCRIT 38.8 % (35.4-49); HEMOGLOBIN 12.7 GM/dL (11.7-16.9); LYMPH % 41.7 % (8-40); MCHC 32.6 g/dl (32.0-35.9); MEAN CELL VOLUME 85.9 fl (80-96); MONO % 13.2 % (3.8-10.2); NEUT % 44.5 % (42.8-82.8); PLATELET COUNT 126 K/MM3 (134-434); RBC 4.51 M/mm3 (4.00-5.60); RDW 15.1 % (11.9-15.9); WHITE BLOOD COUNT 3.4 K/mm3 (4.0-10.0)
[2020-12-22 08:16] LABS: CALCIUM 9.4 mg/dL (8.5-10.1)
[2020-12-22 08:17] LABS: MAGNESIUM 2.3 mg/dL (1.8-2.4)
[2020-12-22 08:20] LABS: ALBUMIN 3.7 g/dl (3.4-5.0)
[2020-12-22 08:22] LABS: BILIRUBIN,TOTAL 0.5 mg/dL (0.2-1); TOT PROT 7.2 g/dl (6.4-8.2)
[2020-12-22 08:23] LABS: CREATININE 0.8 mg/dL (0.55-1.3); PHOSPHOROUS 3.3 mg/dL (2.5-4.9)
[2020-12-22 08:24] LABS: BLOOD UREA NITROGEN 19.6 mg/dL (7-18)
[2020-12-22] MEDS ORDERED: ENOXAPARIN NA (PORCINE) 40 MG/0.4 ML DISP.SYRIN SQ SCH (10:00)
[2020-12-22] MEDS ORDERED: NEBIVOLOL 5 MG TABLET (FP) PO SCH (10:00)
[2020-12-22] MEDS: LOSARTAN POTASSIUM 50 MG TABLET PO SCH (10:47)
[2020-12-22] MEDS: ASPIRIN COATED 81 MG TABLET.EC PO SCH (10:47)
[2020-12-22] MEDS: amLODIPine BESYLATE 5 MG TABLET (FP) PO SCH (10:47)
[2020-12-22] MEDS: HYDROCHLOROTHIAZIDE 25 MG TABLET (FP) PO SCH (10:47)
[2020-12-22] MEDS: SODIUM CHLORIDE 1,000 ML IV SCH (21:32)
[2020-12-22] MEDS: DOCUSATE SODIUM 100 MG CAPSULE (FP) PO SCH (21:32)
[2020-12-22] MEDS ORDERED: DOCUSATE SODIUM 100 MG CAPSULE (FP) PO SCH (22:00)
[2020-12-22] MEDS ORDERED: SENNOSIDES 8.6MG TABLET (FP) PO SCH (22:00)
[2020-12-23] MEDS ORDERED: NEBIVOLOL 2.5 MG TABLET (FP) PO SCH (10:00)
[2020-12-23] MEDS: HYDROCHLOROTHIAZIDE 25 MG TABLET (FP) PO SCH (11:06)
[2020-12-23] MEDS: APIXABAN 2.5 MG TABLET PO SCH ×2 (11:06→22:05)
[2020-12-23] MEDS: LOSARTAN POTASSIUM 50 MG TABLET PO SCH (11:06)
[2020-12-23] MEDS: amLODIPine BESYLATE 5 MG TABLET (FP) PO SCH (11:06)
[2020-12-23] MEDS: ASPIRIN COATED 81 MG TABLET.EC PO SCH (11:06)
[2020-12-23] MEDS: SODIUM CHLORIDE 1,000 ML IV SCH (22:04)
[2020-12-23] MEDS: ATORVASTATIN CA 40 MG TABLET (FP) PO SCH (22:05)
[2020-12-23] MEDS: DOCUSATE SODIUM 100 MG CAPSULE (FP) PO SCH (22:05)
[2020-12-24 07:39] LABS: BASO % 0.6 % (0-2.0); EOS % 1.2 % (0-4.5); HEMATOCRIT 39.1 % (35.4-49); HEMOGLOBIN 12.7 GM/dL (11.7-16.9); LYMPH % 43.9 % (8-40); MCH 28.2 pg (25.7-33.7); MCHC 32.6 g/dl (32.0-35.9); MEAN CELL VOLUME 86.4 fl (80-96); MEAN PLT VOLUME 8.7 fl (7.5-11.1); MONO % 12.9 % (3.8-10.2); NEUT % 41.4 % (42.8-82.8); PLATELET COUNT 119 K/MM3 (134-434); RBC 4.52 M/mm3 (4.00-5.60); RDW 15.2 % (11.9-15.9); WHITE BLOOD COUNT 3.5 K/mm3 (4.0-10.0)
[2020-12-24 07:46] LABS: ALBUMIN 3.2 g/dl (3.4-5.0); BLOOD UREA NITROGEN 19.7 mg/dL (7-18); CALCIUM 8.9 mg/dL (8.5-10.1); MAGNESIUM 1.9 mg/dL (1.8-2.4)
[2020-12-24 07:49] LABS: CREATININE 0.7 mg/dL (0.55-1.3)
[2020-12-24 07:50] LABS: PHOSPHOROUS 3.1 mg/dL (2.5-4.9)
[2020-12-24 07:51] LABS: BILIRUBIN,TOTAL 0.9 mg/dL (0.2-1); TOT PROT 6.5 g/dl (6.4-8.2)
[2020-12-24] MEDS ORDERED: FUROSEMIDE 20 MG TABLET (FP) PO SCH (10:00)
[2020-12-24] MEDS: APIXABAN 2.5 MG TABLET PO SCH (11:42)
[2020-12-24] MEDS: LOSARTAN POTASSIUM 50 MG TABLET PO SCH (11:42)
[2020-12-24] MEDS: amLODIPine BESYLATE 5 MG TABLET (FP) PO SCH (11:42)
[2020-12-24] MEDS: ASPIRIN COATED 81 MG TABLET.EC PO SCH (11:42)
[2020-12-24 15:58] VITALS: BP 98/56; PULSE 48; TEMP 98.6
== END 2020-12-24 18:23 | disposition home or self-care (01) | DRG 310 ==
LOC: JER 16:21 → JERBED 20:34 → J4W 23:39
PROVIDERS: ADMIT Internal Medicine; ATTEND Internal Medicine
DX: I48.91 Unspecified atrial fibrillation (principal); I10 Essential (primary) hypertension; R55 Syncope and collapse; N40.0 Benign prostatic hyperplasia without lower urinary tract symptoms
CPT/HCPCS: 36415; 70450-TC; 70551-TC; 80053; 80061; 81003; 82550; 82962; 83036; 83735; 84100; 84443; 84484; 85025; 85610; 85730; 86850; 86900; 86901; 93005; 93010; 93306-TC; 93880-TC; 93970-TC; 97116-GP; 97161-GP; 99285-25; C9803; U0003; U0005